=== PATIENT | female | born 1955 | race Hispanic/Latino ===

== ENCOUNTER → 2017-09-02 | Outpatient (CLI) | payer OTHER | END | disposition home or self-care (01) | LOC: RAH 09:47 | PROVIDERS: ATTEND Internal Medicine Cardiovascular Disease | DX: I73.9 Peripheral vascular disease, unspecified (principal); R55 Syncope and collapse | CPT/HCPCS: 70450 ==

== ENCOUNTER → 2017-09-14 | Outpatient (CLI) | payer OTHER | END | disposition home or self-care (01) | LOC: SHCH 11:56 | PROVIDERS: ATTEND Internal Medicine Cardiovascular Disease | DX: R51 Headache (principal); R55 Syncope and collapse; H53.8 Other visual disturbances | CPT/HCPCS: 93880 ==

== ENCOUNTER 2018-05-03 17:26 | Emergency (ER) | payer OTHER, MEDICARE ==
[2018-05-03] MEDS ORDERED: 0.9% SODIUM CHLORIDE 500 ML IV BAG IV ONE (17:51)
[2018-05-03 17:58] LABS: BASOPHILS % (AUTO) 0.1 % (0.0-5.0); EOSINOPHILS % (AUTO) 2.6 % (0.0-8.0); HEMATOCRIT 37.5 % (36-48); MEAN CORPUSCULAR HEMOGLOBIN 27.7 pg (27.0-33.0); MEAN CORPUSCULAR HGB CONC 33.2 g/dL (32.0-36.0); MEAN CORPUSCULAR VOLUME 83.3 fL (79-99); MONOCYTES % (AUTO) 2.9 % (3.0-13.0); NEUTROPHILS % (AUTO) 87.4 % (40.0-77.0); PLATELET COUNT (AUTO) 285 K/uL (130-400); RED CELL DISTRIBUTION WIDTH 14.8 % (11.0-15.5); WHITE BLOOD COUNT (AUTO) 11.5 K/uL (4.8-10.8)
[2018-05-03] MEDS ORDERED: 0.9% SODIUM CHLORIDE 1000 ML IV BAG IV ONE (18:04)
[2018-05-03 18:05] LABS: CREATININE 1.1 mg/dL (0.5-1.5); POTASSIUM 3.6 mmol/L (3.5-5.1)
[2018-05-03 18:09] LABS: ALBUMIN 3.8 g/dL (3.5-5.0); BILIRUBIN,TOTAL 0.6 mg/dL (0.2-1.0); TOTAL PROTEIN, SERUM 7.7 g/dL (6.0-8.3)
== END 2018-05-03 19:12 | disposition home or self-care (01) ==
LOC: EDH 17:26
DX: R11.2 Nausea with vomiting, unspecified (principal); I10 Essential (primary) hypertension; E11.9 Type 2 diabetes mellitus without complications; E78.5 Hyperlipidemia, unspecified
CPT/HCPCS: 36415; 80053; 85025; 96360; 96361; 99285; J7030; J7040

== ENCOUNTER → 2018-12-27 | Outpatient (CLI) | payer OTHER, MEDICARE | END | disposition home or self-care (01) | LOC: RAH 11:07 | PROVIDERS: ATTEND Family Medicine | DX: Z12.31 Encounter for screening mammogram for malignant neoplasm of breast (principal) | CPT/HCPCS: 77067 ==

== ENCOUNTER → 2019-02-05 | Outpatient (CLI) | payer OTHER, MEDICARE | END | disposition home or self-care (01) | LOC: SHCH 12:30 | PROVIDERS: ATTEND Internal Medicine Cardiovascular Disease | DX: I11.9 Hypertensive heart disease without heart failure (principal); I25.10 Atherosclerotic heart disease of native coronary artery without angina pectoris | CPT/HCPCS: 93306 ==

== ENCOUNTER 2019-06-11 16:27 | Emergency (ER) | payer OTHER, MEDICARE ==
[2019-06-11 18:09] LABS: BASOPHILS % (AUTO) 0.4 % (0.0-5.0); EOSINOPHILS % (AUTO) 3.8 % (0.0-8.0); HEMATOCRIT 35.8 % (36-48); LYMPHOCYTES % (AUTO) 21.8 % (21.0-51.0); MEAN CORPUSCULAR HEMOGLOBIN 28.8 pg (27.0-33.0); MEAN CORPUSCULAR HGB CONC 34.3 g/dL (32.0-36.0); MEAN CORPUSCULAR VOLUME 83.8 fL (79-99); MONOCYTES % (AUTO) 9.7 % (3.0-13.0); NEUTROPHILS % (AUTO) 64.3 % (40.0-77.0); NUCLEATED RED BLOOD CELLS 0.1 % (0.0-0.19); PLATELET COUNT (AUTO) 280 K/uL (130-400); RED BLOOD CELL COUNT(AUTO) 4.28 MIL/uL (4.00-5.50); RED CELL DISTRIBUTION WIDTH 13.8 % (11.0-15.5); WHITE BLOOD COUNT (AUTO) 8.1 K/uL (4.8-10.8)
[2019-06-11 18:59] LABS: B-TYPE NATRIURETIC PEPTIDE 10 pg/mL (0-100)
== END 2019-06-11 19:45 | disposition home or self-care (01) ==
LOC: EDH 16:27
DX: I10 Essential (primary) hypertension (principal); E11.9 Type 2 diabetes mellitus without complications; E78.5 Hyperlipidemia, unspecified; Z88.8 Allergy status to other drugs, medicaments and biological substances; Z98.890 Other specified postprocedural states
CPT/HCPCS: 36415; 83880; 84484; 85025; 93005

== ENCOUNTER 2019-07-04 15:22 | Observation (INO) | payer OTHER, MEDICARE ==
[~2019-07-04] VITALS: Ht 167.6 cm; Wt 72.4 kg
[2019-07-04] MEDS ORDERED: ONDANSETRON HCL 4 MG/2 ML VIAL ONE (15:39)
[2019-07-04 16:03] LABS: BASOPHILS % (AUTO) 0.4 % (0.0-5.0); HEMATOCRIT 39.4 % (36-48); LYMPHOCYTES % (AUTO) 24.2 % (21.0-51.0); MEAN CORPUSCULAR HEMOGLOBIN 28.5 pg (27.0-33.0); MEAN CORPUSCULAR HGB CONC 33.9 g/dL (32.0-36.0); MEAN CORPUSCULAR VOLUME 84.1 fL (79-99); MONOCYTES % (AUTO) 9.6 % (3.0-13.0); NEUTROPHILS % (AUTO) 61.8 % (40.0-77.0); NUCLEATED RED BLOOD CELLS 0.1 % (0.0-0.19); PLATELET COUNT (AUTO) 327 K/uL (130-400); RED BLOOD CELL COUNT(AUTO) 4.68 MIL/uL (4.00-5.50); RED CELL DISTRIBUTION WIDTH 13.7 % (11.0-15.5); WHITE BLOOD COUNT (AUTO) 8.9 K/uL (4.8-10.8)
[2019-07-04 16:16] LABS: CREATININE 1.1 mg/dL (0.5-1.5); POTASSIUM 3.5 mmol/L (3.5-5.1)
[2019-07-04 16:20] LABS: BILIRUBIN,TOTAL 0.6 mg/dL (0.2-1.0); TOTAL PROTEIN, SERUM 8.7 g/dL (6.0-8.3)
[2019-07-04 16:24] LABS: INR 0.89 (0.85-1.15); PARTIAL THROMBOPLASTIN TIME 25.4 SEC (26.3-35.5); PROTHROMBIN TIME 9.4 SEC (9.6-11.6)
[2019-07-04] MEDS ORDERED: HYOSCYAMINE SULFATE 0.125 MG TAB.SUBL SL ONE (16:24)
[2019-07-04 16:58] LABS: APPEARANCE,URINE Clear (CLEAR); BILIRUBIN,URINE Negative (NEGATIVE); COLOR,URINE Yellow (YELLOW); GLUCOSE, URINE (UA) 500 mg/dL (NEGATIVE); KETONES,URINE Negative (NEGATIVE); LEUKOCYTE ESTERASE ,URINE Negative (NEGATIVE); NITRATE,URINE Negative (NEGATIVE); OCCULT BLOOD,URINE Negative (NEGATIVE); PH,URINE 7.5 (5.0-8.0); PROTEIN,URINE Trace mg/dL (NEGATIVE)
[2019-07-04 17:23] LABS: BACTERIA,URINE Few /HPF (None Seen); MUCUS,URINE Few LPF (None Seen)
[2019-07-04] MEDS ORDERED: SIMETHICONE 80 MG TAB.CHEW ONE (18:01)
[2019-07-04] MEDS ORDERED: KETOROLAC TROMETHAMINE 15MG/ML ONE (18:01)
[2019-07-04] MEDS ORDERED: SUCRALFATE 1 GM TABLET ONE (18:02)
[2019-07-04] MEDS ORDERED: ZOSYN 3.375GM+NS 50ML 50 ML IV ONE (18:49)
[2019-07-04] MEDS ORDERED: MORPHINE SULFATE 2 MG/ML 1ML SYG ONE (20:33)
[2019-07-04] MEDS ORDERED: MORPHINE SULFATE 2 MG/ML 1ML SYG IVP PRN (21:00)
[2019-07-04] MEDS ORDERED: GLUCAGON 1MG KIT 1 MG ML IM PRN (21:00)
[2019-07-04] MEDS ORDERED: DEXTROSE 50%-WATER 50 ML DISP.SYRIN IV PRN (21:00)
[2019-07-04] MEDS ORDERED: POTASSIUM CHLORIDE 20 MEQ ERTAB PO PRN (21:00)
[2019-07-04] MEDS ORDERED: LIDOCAINE HCL-MPF 1% 2ML VIAL IV PRN ×2 (21:00)
[2019-07-04] MEDS ORDERED: HYDRALAZINE HCL 20 MG/ML VIAL IV PRN (21:00)
[2019-07-04] MEDS ORDERED: POTASSIUM CHLORIDE 20MEQ/100ML 100 ML IV PRN ×2 (21:00)
[2019-07-04 21:14] VITALS: BP 140/74
[2019-07-04] MEDS: SODIUM CHLORIDE 0.9% 1000ML 1,000 ML IV SCH (21:42)
[2019-07-04] MEDS: POTASSIUM CHLORIDE 10% ELIXIR 20 MEQ/15 ML UDCUP PO PRN ×2 (21:43→23:31)
[2019-07-04] MEDS ORDERED: CLONIDINE HCL 0.1 MG TABLET PO PRN (23:00)
[2019-07-04] MEDS ORDERED: NAPROXEN 250 MG TAB PO PRN (23:00)
[2019-07-04 23:05] VITALS: BP 162/89
[2019-07-04] MEDS ORDERED: DEXL60CA3 PO (23:24)
[2019-07-04] MEDS ORDERED: METO50TA18 PO (23:24)
[2019-07-04] MEDS ORDERED: METF-446 PO (23:24)
[2019-07-04] MEDS ORDERED: DILT240C46 PO (23:24)
[2019-07-04] MEDS ORDERED: INSU3INS10 SQ (23:24)
[2019-07-04] MEDS ORDERED: NAPR500T6 PO (23:24)
[2019-07-04] MEDS ORDERED: VALS1TAB81 PO (23:24)
[2019-07-04] MEDS ORDERED: CLON0.1T PO (23:24)
[2019-07-04] MEDS ORDERED: AEC81 PO (23:24)
[2019-07-04] MEDS ORDERED: ATOR40TA69 PO (23:24)
[2019-07-05] MEDS ORDERED: ZOSYN 3.375GM+NS 50ML 50 ML IV ONE (02:57)
[2019-07-05] MEDS ORDERED: ONDANSETRON HCL 4 MG/2 ML VIAL IVP PRN ×2 (03:00)
[2019-07-05] MEDS ORDERED: KETOROLAC TROMETHAMINE 15MG/ML IV PRN (03:00)
[2019-07-05] MEDS ORDERED: ACETAMINOPHEN 325 MG TAB PO PRN ×2 (03:00)
[2019-07-05 03:29] VITALS: BP 158/79
[2019-07-05 04:23] LABS: HEMATOCRIT 34.4 % (36-48); MEAN CORPUSCULAR HEMOGLOBIN 27.8 pg (27.0-33.0); MEAN CORPUSCULAR HGB CONC 33.5 g/dL (32.0-36.0); MEAN CORPUSCULAR VOLUME 82.9 fL (79-99); PLATELET COUNT (AUTO) 309 K/uL (130-400); RED BLOOD CELL COUNT(AUTO) 4.15 MIL/uL (4.00-5.50); RED CELL DISTRIBUTION WIDTH 13.8 % (11.0-15.5); WHITE BLOOD COUNT (AUTO) 7.4 K/uL (4.8-10.8)
[2019-07-05 04:45] LABS: ALBUMIN 3.2 g/dL (3.5-5.0); BILIRUBIN,TOTAL 0.6 mg/dL (0.2-1.0); TOTAL PROTEIN, SERUM 7.1 g/dL (6.0-8.3)
[2019-07-05] MEDS: ZOSYN 3.375GM+NS 50ML 50 ML IV SCH ×2 (05:00→15:36)
[2019-07-05] MEDS: SODIUM CHLORIDE 0.9% 1000ML 1,000 ML IV SCH ×2 (05:10→15:36)
[2019-07-05] MEDS: INSULIN HUMULIN R 100 UNIT/ML 3ML SQ SCH ×5 (06:00→22:45)
--- NOTE | 2019-07-05 07:40 | NUR ---
NOTE AAOX3. DNEIES ABDOMINAL PAIN OR DISCOMFORT AT THIS TIME BUT SHE DID COME IN WITH THESE COMPLAINS. STARTED YESTERDAY. HAD CT AND ULTRASOUND ABDOMEN DONE AND GI CONSULT ORDERED. WILL PAGE LATER. WILL KEEP NPO FOR NOW.
--- NOTE | 2019-07-05 07:57 | NUR ---
PATIENT UPDATE ADMITTED FOR INTRACTABLE ABDOMINAL PAIN. NPO EXCEPT MEDS LAST NIGHT, HOME MEDS RESTARTED, BP MEDS TAKEN BY PT. NS AT 100 CC/HR, PENDING GI CONSULT THIS AM, PT KEPT STRICT NPO STATUS AFTER MN, FOR POSSIBLE GI PROCEDURE THIS AM. PT SHOWERED BEFORE MN, HOME MEDS RESTARTED, NS INFUSED AT 75 CC/HR. NO COMPLAINTS OF ANY ABDOMINAL PAIN, NO NAUSEA AND VOMITING. SLEPT FAIRLY OVERNIGHT.
[2019-07-05 07:59] VITALS: BP 153/83
[2019-07-05] MEDS: METFORMIN HCL 500 MG TABLET PO SCH ×2 (08:00→15:36)
[2019-07-05] MEDS: INSULIN GLARGINE 100 UNITS/ML 10 ML VIAL SQ SCH (08:33)
[2019-07-05] MEDS: ASPIRIN 81 MG EC TAB PO SCH (09:00)
[2019-07-05] MEDS: VALSARTAN HCTZ PO SCH (09:00)
[2019-07-05] MEDS: DILTIAZEM HCL 120 MG CAP.SR.24H PO SCH (09:00)
[2019-07-05] MEDS: METOPROLOL TARTRATE 50 MG TAB PO SCH ×2 (09:00→22:10)
[2019-07-05] MEDS: PANTOPRAZOLE SODIUM 40 MG TABLET.DR PO SCH (09:00)
--- NOTE | 2019-07-05 10:59 | NUR ---
NOTE SPOKE TO DR MOONEY OFFICE AND INFORMED THEM ABOUT CONSULT. WE HAD PAGED DR MORENO BUT SHE DID NOT TAKE THE CALL EARLIER.
[2019-07-05 11:29] VITALS: BP 142/76
--- NOTE | 2019-07-05 12:30 | NUR ---
INITIAL MET W PT. AAOX3, LIVES W SPOUSE., WHO IS AT BEDSIDE, AND WILL PROVIDE TRANSPORT INDP OF ADLS, USES [employer], HAS PROVIDER 25 HRS/WK, NO STAIRS, N HOME SAFE AND ACCESSIBLE, DCP IS HOME. WAITING ON HIDA SCAN, THEN TO TOLERATE DIET Addendum: 07/06/19 at 1856 by BERTHA PAPPAS RN CM Amended: Links added.
--- NOTE | 2019-07-05 15:00 | NUR ---
NOTE WENT DOWN TO HAVE HIDA SCAN DONE. PATIENT HAD BEEN COMPLAINING ABOUT BEING HUNGRY.
[2019-07-05 16:08] VITALS: BP 146/80
--- NOTE | 2019-07-05 16:50 | NUR ---
NOTE INFORMED DR MOONEY THAT HIDA SCAN LIGHT US GB AND SMALL INTESTINE NO PROBLEM. ASKED HIM IF HE WOULD LIKE EF TO BE DONE AT THIS TIME BEFORE PATIENT IS BROUGHT UP. HE SAID YES. I INFORMED ALAINA WITH NUCLEAR MEDICINE.
[2019-07-05 19:54] VITALS: BP 162/89
[2019-07-05] MEDS ORDERED: ATORVASTATIN CALCIUM 40 MG TABLET PO SCH (21:00)
[2019-07-05 23:46] VITALS: BP 149/89
[2019-07-06] MEDS: ZOSYN 3.375GM+NS 50ML 50 ML IV SCH ×2 (00:05→05:00)
[2019-07-06 04:00] VITALS: BP 139/81
[2019-07-06] MEDS: INSULIN HUMULIN R 100 UNIT/ML 3ML SQ SCH ×2 (05:58→12:23)
--- NOTE | 2019-07-06 06:00 | NUR ---
PATIENT UPDATE Slept well overnight, no complaints of pain. Ambulating more, tolerating a heart healthy diet, no nausea nor vomiting. Vital signs stable. Will check pt's tolerance to a low fat diet today and stated that she might be discharged today.
[2019-07-06 08:00] VITALS: BP 157/91
[2019-07-06] MEDS: METFORMIN HCL 500 MG TABLET PO SCH (08:54)
[2019-07-06] MEDS: METOPROLOL TARTRATE 50 MG TAB PO SCH (08:55)
[2019-07-06] MEDS: ASPIRIN 81 MG EC TAB PO SCH (08:55)
[2019-07-06] MEDS: PANTOPRAZOLE SODIUM 40 MG TABLET.DR PO SCH (08:55)
[2019-07-06] MEDS: DILTIAZEM HCL 120 MG CAP.SR.24H PO SCH (08:55)
[2019-07-06] MEDS: VALSARTAN HCTZ PO SCH (09:00)
[2019-07-06] MEDS: INSULIN GLARGINE 100 UNITS/ML 10 ML VIAL SQ SCH (09:01)
--- NOTE | 2019-07-06 10:55 | NUR ---
DR. LAM ZUÑIGA
[2019-07-06 11:00] VITALS: BP 161/94
--- NOTE | 2019-07-06 13:01 | NUR ---
JULIUS FROM GI OFFIC [facility] AWARE STATES WILL CONVEY HIDA SCAN RESULTS TO DR. GONZALEZ
--- NOTE | 2019-07-06 17:55 | NUR ---
PT D/C HOME USING [facility] TECHNIQUE RE: NEW MEDS, HOME MEDS, S/S TO WATCH FOR AND WHEN TO CALL MD OR 911. FOLLOW UP APPT WITH DR. MOONEY ON July @ 3:15P.M. OFFICE NUMBER: FOLLOW WITH PRIMARY DOCTOR ON TUESDAY IN AM. CALL TO SET UP AN APPOINTMENT. OFFICES WERE CLOSED AT TIME OF DISCHARGE. IF SEVERE ABDOMINAL PAIN REOCCURS CALL YOUR PRIMARY DOCTOR OF VISIT YOUR NEAREST EMERGENCY ROOM. IV OUT INTACT NO BLEEDING, AAOX3, NO DISTRESS NOTED DENIES ANY NEEDS.
== END 2019-07-06 17:39 | disposition home or self-care (01) ==
LOC: EDH 15:22 → EDHIP 18:20 → 4CH 20:09
PROVIDERS: ADMIT Internal Medicine; ATTEND Internal Medicine
DX: R10.13 Epigastric pain (principal); E11.9 Type 2 diabetes mellitus without complications; E78.5 Hyperlipidemia, unspecified; I10 Essential (primary) hypertension; I25.10 Atherosclerotic heart disease of native coronary artery without angina pectoris; Z87.11 Personal history of peptic ulcer disease; Z87.891 Personal history of nicotine dependence; Z96.651 Presence of right artificial knee joint; Z79.4 Long term (current) use of insulin; Z79.82 Long term (current) use of aspirin; Z79.899 Other long term (current) drug therapy; Z88.8 Allergy status to other drugs, medicaments and biological substances
CPT/HCPCS: 36415 ×2; 71045; 74176; 76705; 78227; 80053 ×2; 81001; 82150 ×2; 82550; 82948 ×7; 83690 ×2; 84484 ×2; 85025; 85027; 85610; 85730; 93005 ×2; 96365; 96366 ×2; 96372; 99284; A9537; G0378 ×48; J1885; J2405; J2543 ×4; J7030 ×2

== ENCOUNTER → 2019-12-27 | Outpatient (CLI) | payer OTHER, MEDICARE ==
[~2019-12-27] MED LIST: AEC81 PO; ATOR40TA69 PO; CLON0.1T PO; DEXL60CA3 PO; DILT240C46 PO; INSU3INS10 SQ; LEVO500T2 PO; METF-446 PO; METO50TA18 PO; METR500T PO; SUCR1TAB2 PO; VALS1TAB81 PO
== END | disposition home or self-care (01) ==
LOC: RAH 10:45
PROVIDERS: ATTEND Family Medicine
DX: Z12.31 Encounter for screening mammogram for malignant neoplasm of breast (principal)
CPT/HCPCS: 77067

== ENCOUNTER 2020-01-04 13:55 | Emergency (ER) | payer OTHER, MEDICARE ==
[2020-01-04 15:05] LABS: BASOPHILS % (AUTO) 0.4 % (0.0-5.0); EOSINOPHILS % (AUTO) 2.6 % (0.0-8.0); HEMATOCRIT 36.7 % (36-48); MEAN CORPUSCULAR HEMOGLOBIN 26.2 pg (27.0-33.0); MEAN CORPUSCULAR HGB CONC 32.2 g/dL (32.0-36.0); MEAN CORPUSCULAR VOLUME 81.4 fL (79-99); MONOCYTES % (AUTO) 8.2 % (3.0-13.0); NEUTROPHILS % (AUTO) 76.3 % (40.0-77.0); PLATELET COUNT (AUTO) 322 K/uL (130-400); RED BLOOD CELL COUNT(AUTO) 4.51 MIL/uL (4.00-5.50); RED CELL DISTRIBUTION WIDTH 13.8 % (11.0-15.5); WHITE BLOOD COUNT (AUTO) 10.1 K/uL (4.8-10.8)
[2020-01-04 15:16] LABS: CREATININE 1.1 mg/dL (0.5-1.5); POTASSIUM 3.9 mmol/L (3.5-5.1)
[2020-01-04 15:17] LABS: INR 0.88 (0.85-1.15); PARTIAL THROMBOPLASTIN TIME 25.2 SEC (26.3-35.5); PROTHROMBIN TIME 9.6 SEC (9.6-11.6)
[2020-01-04 15:20] LABS: ALBUMIN 3.9 g/dL (3.5-5.0); BILIRUBIN,TOTAL 0.5 mg/dL (0.2-1.0); TOTAL PROTEIN, SERUM 8.2 g/dL (6.0-8.3)
[2020-01-04] MEDS ORDERED: MORPHINE SULFATE 2 MG/ML 1ML SYG ONE (16:14)
== END 2020-01-04 17:44 | disposition home or self-care (01) ==
LOC: EDH 13:55
DX: S52.021A Displaced fracture of olecranon process without intraarticular extension of right ulna, initial encounter for closed fracture (principal); M25.522 Pain in left elbow; S50.02XA Contusion of left elbow, initial encounter; M25.561 Pain in right knee; I10 Essential (primary) hypertension; E78.5 Hyperlipidemia, unspecified; E11.9 Type 2 diabetes mellitus without complications; I25.10 Atherosclerotic heart disease of native coronary artery without angina pectoris; W18.39XA Other fall on same level, initial encounter; Y93.01 Activity, walking, marching and hiking; Y92.89 Other specified places as the place of occurrence of the external cause; Y99.8 Other external cause status
CPT/HCPCS: 29105; 36415; 70450; 71045; 73080; 73562; 80053; 82550; 84484; 85025; 85610; 85730; 93005; 96372; 96374

== ENCOUNTER → 2021-01-20 | Outpatient (CLI) | payer OTHER, MEDICARE | END | disposition home or self-care (01) | LOC: RAH 10:14 | PROVIDERS: ATTEND Family Medicine | DX: Z12.31 Encounter for screening mammogram for malignant neoplasm of breast (principal) | CPT/HCPCS: 77067 ==

== ENCOUNTER 2021-04-29 19:07 | Emergency (ER) | payer OTHER, MEDICARE ==
[~2021-04-29] VITALS: Ht 167.6 cm; Wt 69.4 kg
[2021-04-29] MEDS ORDERED: ASPIRIN 325MG TAB PO ONE (19:30)
[2021-04-29 19:40] LABS: APPEARANCE,URINE Clear (CLEAR); BILIRUBIN,URINE Negative (NEGATIVE); COLOR,URINE Yellow (YELLOW); GLUCOSE, URINE (UA) 250 mg/dL (NEGATIVE); KETONES,URINE Negative (NEGATIVE); LEUKOCYTE ESTERASE ,URINE Negative (NEGATIVE); NITRATE,URINE Negative (NEGATIVE); OCCULT BLOOD,URINE Negative (NEGATIVE); PH,URINE 5.5 (5.0-8.0); PROTEIN,URINE Negative (NEGATIVE)
[2021-04-29 19:47] LABS: BASOPHILS % (AUTO) 0.5 % (0.0-5.0); EOSINOPHILS % (AUTO) 5.4 % (0.0-8.0); HEMATOCRIT 32.6 % (36-48); LYMPHOCYTES % (AUTO) 24.1 % (21.0-51.0); MEAN CORPUSCULAR HEMOGLOBIN 25.4 pg (27.0-33.0); MEAN CORPUSCULAR HGB CONC 32.8 g/dL (32.0-36.0); MEAN CORPUSCULAR VOLUME 77.3 fL (79-99); MONOCYTES % (AUTO) 11.5 % (3.0-13.0); NEUTROPHILS % (AUTO) 58.1 % (40.0-77.0); PLATELET COUNT (AUTO) 345 K/uL (130-400); RED BLOOD CELL COUNT(AUTO) 4.22 MIL/uL (4.00-5.50); RED CELL DISTRIBUTION WIDTH 14.4 % (11.0-15.5); WHITE BLOOD COUNT (AUTO) 8.5 K/uL (4.8-10.8)
[2021-04-29 19:57] LABS: CREATININE 1.1 mg/dL (0.5-1.5); POTASSIUM 3.8 mmol/L (3.5-5.1)
[2021-04-29 20:00] LABS: BACTERIA,URINE None Seen /HPF (None Seen); MUCUS,URINE Few LPF (None Seen); RBC,URINE 0-1 /HPF (0-1); SQUAMOUS EPITHELIAL CELL,UR 0-2 /HPF (0-2); WBC,URINE 0-1 /HPF (0-1)
[2021-04-29 20:07] LABS: ALBUMIN 3.8 g/dL (3.5-5.0); BILIRUBIN,TOTAL 0.4 mg/dL (0.2-1.0); TOTAL PROTEIN, SERUM 7.9 g/dL (6.0-8.3)
[2021-04-29] MEDS ORDERED: SOLU-MEDROL 125MG VIAL IVP ONE (20:30)
[2021-04-30] MEDS ORDERED: METH4TAB3 PO (00:48)
[2021-04-30 01:28] VITALS: BP 142/83
== END 2021-04-30 01:39 | disposition home or self-care (01) ==
LOC: EDH 19:07
DX: M94.0 Chondrocostal junction syndrome [Tietze] (principal); J44.9 Chronic obstructive pulmonary disease, unspecified; K21.9 Gastro-esophageal reflux disease without esophagitis; I10 Essential (primary) hypertension; E78.00 Pure hypercholesterolemia, unspecified; E11.9 Type 2 diabetes mellitus without complications; Z79.52 Long term (current) use of systemic steroids; Z79.82 Long term (current) use of aspirin; Z79.899 Other long term (current) drug therapy; Z88.8 Allergy status to other drugs, medicaments and biological substances; Z79.4 Long term (current) use of insulin
CPT/HCPCS: 36415; 71045; 80053; 81001; 82550; 83874; 84484; 85025; 93005; 96374; 99285; J2930

== ENCOUNTER → 2021-05-19 | Outpatient (CLI) | payer OTHER, MEDICARE ==
[~2021-05-19] VITALS: Ht 167.6 cm; Wt 71.7 kg
[~2021-05-19] MED LIST changes: +METH4TAB3 PO; +REGADENOSON 0.4 MG/5 ML PF SYG IVP SCH
== END | disposition home or self-care (01) ==
LOC: SHCH 08:12
PROVIDERS: ATTEND Internal Medicine Cardiovascular Disease
DX: I25.10 Atherosclerotic heart disease of native coronary artery without angina pectoris (principal)
CPT/HCPCS: 78452; 93017; 96374; A9500 ×2; J2785

== ENCOUNTER 2021-12-23 20:55 | Observation (INO) | payer OTHER, MEDICARE ==
[~2021-12-23] VITALS: Ht 165.1 cm; Wt 72.9 kg
[~2021-12-23 20:55] MED LIST changes: -REGADENOSON 0.4 MG/5 ML PF SYG IVP SCH
[2021-12-23 22:38] LABS: APPEARANCE,URINE Clear (CLEAR); BILIRUBIN,URINE Negative (NEGATIVE); COLOR,URINE Yellow (YELLOW); GLUCOSE, URINE (UA) TRACE mg/dL (NEGATIVE); KETONES,URINE Negative (NEGATIVE); LEUKOCYTE ESTERASE ,URINE Negative (NEGATIVE); NITRATE,URINE Negative (NEGATIVE); OCCULT BLOOD,URINE Small (NEGATIVE); PROTEIN,URINE Negative (NEGATIVE); UROBILINOGEN,URINE 0.2 mg/dL (0.2-1.0)
[2021-12-23 22:51] LABS: BACTERIA,URINE Few /HPF (None Seen); RBC,URINE 0-1 /HPF (0-1)
[2021-12-23 22:51] LABS: BASOPHILS % (AUTO) 0.4 % (0.0-5.0); HEMATOCRIT 32.1 % (36-48); LYMPHOCYTES % (AUTO) 20.4 % (21.0-51.0); MEAN CORPUSCULAR HEMOGLOBIN 23.7 pg (27.0-33.0); MEAN CORPUSCULAR HGB CONC 31.8 g/dL (32.0-36.0); MEAN CORPUSCULAR VOLUME 74.5 fL (79-99); MONOCYTES % (AUTO) 10.6 % (3.0-13.0); NEUTROPHILS % (AUTO) 63.1 % (40.0-77.0); PLATELET COUNT (AUTO) 356 K/uL (130-400); RED BLOOD CELL COUNT(AUTO) 4.31 MIL/uL (4.00-5.50); RED CELL DISTRIBUTION WIDTH 14.3 % (11.0-15.5); WHITE BLOOD COUNT (AUTO) 8.4 K/uL (4.8-10.8)
[2021-12-23 23:01] LABS: CREATININE 1.1 mg/dL (0.5-1.5); POTASSIUM 3.6 mmol/L (3.5-5.1)
[2021-12-23 23:05] LABS: ALBUMIN 3.8 g/dL (3.5-5.0); BILIRUBIN,TOTAL 0.4 mg/dL (0.2-1.0); TOTAL PROTEIN, SERUM 7.7 g/dL (6.0-8.3)
[2021-12-24] MEDS ORDERED: ACETAMINOPHEN 650 MG SUPPOSITORY RC PRN (03:30)
[2021-12-24] MEDS ORDERED: ALBUTEROL 0.083% 2.5 MG/3 ML INH IH PRN (03:30)
[2021-12-24] MEDS ORDERED: ACETAMINOPHEN 325 MG TAB PO PRN (03:30)
[2021-12-24] MEDS ORDERED: ONDANSETRON 4MG INJ IVP PRN (03:30)
[2021-12-24] MEDS ORDERED: HYDRALAZINE 20MG/ML VIAL IV PRN (03:30)
[2021-12-24 04:45] VITALS: BP 158/83
[2021-12-24 05:01] LABS: HEMATOCRIT 30.7 % (36-48)
[2021-12-24] MEDS: 0.9%NACL 1000ML 1,000 ML IV SCH ×2 (05:22→18:21)
[2021-12-24 08:00] VITALS: BP 139/70
[2021-12-24 12:00] VITALS: BP 156/80
[2021-12-24] MEDS ORDERED: CLONIDINE HCL 0.1 MG TABLET PO PRN (13:30)
[2021-12-24] MEDS ORDERED: PEG 3350/NA SULF,BICARB,CL/KCL 4000 ML SOLN PO SCH (13:30)
[2021-12-24 14:34] LABS: HEMATOCRIT 31.1 % (36-48)
[2021-12-24 14:44] LABS: INR 0.93 (0.85-1.15); PROTHROMBIN TIME 9.9 SEC (9.6-11.6)
[2021-12-24 14:46] LABS: PARTIAL THROMBOPLASTIN TIME 25.6 SEC (26.3-35.5)
[2021-12-24 16:00] VITALS: BP 141/75
[2021-12-24] MEDS ORDERED: METFORMIN HCL 500 MG TABLET PO SCH (17:00)
[2021-12-24 20:04] VITALS: BP 143/89
[2021-12-24] MEDS ORDERED: ATORVASTATIN 40 MG TABLET PO SCH (21:00)
[2021-12-24 21:10] LABS: HEMATOCRIT 30.6 % (36-48)
[2021-12-24] MEDS: METOPROLOL TARTRATE 50 MG TAB PO SCH (22:11)
[2021-12-24] MEDS: PANTOPRAZOLE 40 MG/VIAL IVP SCH (22:11)
[2021-12-24 23:37] VITALS: BP 137/74
[2021-12-25] VITALS (19 sets, daily range): BP systolic 115–178; BP diastolic 60–100
[2021-12-25 04:51] LABS: HEMATOCRIT 31.7 % (36-48); MEAN CORPUSCULAR HEMOGLOBIN 23.6 pg (27.0-33.0); MEAN CORPUSCULAR HGB CONC 31.2 g/dL (32.0-36.0); MEAN CORPUSCULAR VOLUME 75.5 fL (79-99); RED BLOOD CELL COUNT(AUTO) 4.2 MIL/uL (4.00-5.50); RED CELL DISTRIBUTION WIDTH 14.6 % (11.0-15.5); WHITE BLOOD COUNT (AUTO) 6.2 K/uL (4.8-10.8)
[2021-12-25 05:13] LABS: ALBUMIN 3.3 g/dL (3.5-5.0); BILIRUBIN,TOTAL 0.9 mg/dL (0.2-1.0); CREATININE 0.8 mg/dL (0.5-1.5); MAGNESIUM 1.4 mg/dL (1.80-2.40); PHOSPHORUS 3.3 mg/dL (2.5-4.9); POTASSIUM 3.8 mmol/L (3.5-5.1); TOTAL PROTEIN, SERUM 6.7 g/dL (6.0-8.3)
[2021-12-25] MEDS: INSULIN HUMULIN R 100 UNIT/ML 3ML SQ SCH ×3 (06:56→16:30)
[2021-12-25] MEDS: METOPROLOL TARTRATE 50 MG TAB PO SCH (07:30)
[2021-12-25] MEDS ORDERED: PROPOFOL 10 MG/ML 20ML VIAL IV ONE (07:53)
[2021-12-25] MEDS ORDERED: LOSARTAN/HYDROCHLOROTHIAZIDE 50-12.5MG TABLET PO SCH (09:00)
[2021-12-25] MEDS ORDERED: DILTIAZEM 120MG SR CAP PO SCH (09:00)
[2021-12-25] MEDS ORDERED: DEXILANT 60 MG PO SCH (09:00)
[2021-12-25] MEDS ORDERED: MAGNESIUM 2GM PREMIX 50ML 50 ML IV PRN (09:00)
[2021-12-25] MEDS ORDERED: SOLIQUA SQ SCH (09:00)
[2021-12-25] MEDS: 0.9%NACL 1000ML 1,000 ML IV SCH (09:21)
[2021-12-25] MEDS: PANTOPRAZOLE 40 MG/VIAL IVP SCH (09:21)
== END 2021-12-25 17:50 | disposition home or self-care (01) ==
LOC: EDH 20:55 → EDHIP 12-24 03:06 → 3AH 12-24 03:56
PROVIDERS: ADMIT Internal Medicine Critical Care Medicine; ATTEND Internal Medicine Critical Care Medicine
DX: K92.2 Gastrointestinal hemorrhage, unspecified (principal); D62 Acute posthemorrhagic anemia; E87.1 Hypo-osmolality and hyponatremia; E11.9 Type 2 diabetes mellitus without complications; I10 Essential (primary) hypertension; E78.5 Hyperlipidemia, unspecified; M19.90 Unspecified osteoarthritis, unspecified site; I25.10 Atherosclerotic heart disease of native coronary artery without angina pectoris; K21.9 Gastro-esophageal reflux disease without esophagitis; K64.9 Unspecified hemorrhoids; R11.2 Nausea with vomiting, unspecified; E78.00 Pure hypercholesterolemia, unspecified; Z79.4 Long term (current) use of insulin; Z79.82 Long term (current) use of aspirin; Z87.19 Personal history of other diseases of the digestive system; Z90.710 Acquired absence of both cervix and uterus; Z96.659 Presence of unspecified artificial knee joint; Z79.899 Other long term (current) drug therapy; Z98.890 Other specified postprocedural states
CPT/HCPCS: 36415 ×3; 45378; 74176; 76700; 80053 ×2; 81001; 82948; 83735; 84100; 85014 ×4; 85018 ×5; 85025; 85027; 85610; 85730; 86850; 86900; 86901; 93005; 94640; 94664; 96361 ×2; 96365; 96366; 96372; 96375; 96376; 99285; A4215; A4222; A4223; A4606; A4620; C9113 ×2; G0378 ×37; J1815; J2704; J3475; J7030

== ENCOUNTER → 2022-01-22 | Outpatient (CLI) | payer OTHER, MEDICARE ==
[~2022-01-22] MED LIST changes: -AEC81 PO; -LEVO500T2 PO; -METH4TAB3 PO; -METR500T PO; -SUCR1TAB2 PO
== END | disposition home or self-care (01) ==
LOC: RAH 07:30
PROVIDERS: ATTEND Family Medicine
DX: Z12.31 Encounter for screening mammogram for malignant neoplasm of breast (principal); R92.1 Mammographic calcification found on diagnostic imaging of breast
CPT/HCPCS: 77067

== ENCOUNTER 2022-04-18 23:02 | Emergency (ER) | payer OTHER, MEDICARE ==
[~2022-04-18] VITALS: Ht 167.6 cm; Wt 73.5 kg
[2022-04-18 23:35] LABS: BASOPHILS % (AUTO) 0.3 % (0.0-5.0); EOSINOPHILS % (AUTO) 4.5 % (0.0-8.0); HEMATOCRIT 35.1 % (36-48); LYMPHOCYTES % (AUTO) 30.1 % (21.0-51.0); MEAN CORPUSCULAR HEMOGLOBIN 24.7 pg (27.0-33.0); MEAN CORPUSCULAR HGB CONC 32.5 g/dL (32.0-36.0); MEAN CORPUSCULAR VOLUME 76.1 fL (79-99); MONOCYTES % (AUTO) 10.6 % (3.0-13.0); NEUTROPHILS % (AUTO) 54.1 % (40.0-77.0); PLATELET COUNT (AUTO) 359 K/uL (130-400); RED BLOOD CELL COUNT(AUTO) 4.61 MIL/uL (4.00-5.50); WHITE BLOOD COUNT (AUTO) 9.8 K/uL (4.8-10.8)
[2022-04-18 23:42] LABS: APPEARANCE,URINE CLEAR (CLEAR); BILIRUBIN,URINE NEGATIVE (NEGATIVE); COLOR,URINE COLORLESS (YELLOW); GLUCOSE, URINE (UA) NEGATIVE (NEGATIVE); KETONES,URINE NEGATIVE (NEGATIVE); LEUKOCYTE ESTERASE ,URINE NEGATIVE Leu/uL (NEGATIVE); NITRATE,URINE NEGATIVE (NEGATIVE); OCCULT BLOOD,URINE SMALL (NEGATIVE); PROTEIN,URINE NEGATIVE (NEGATIVE); UROBILINOGEN,URINE 0.2 mg/dL (0.2-1.0)
[2022-04-18 23:45] LABS: SQUAMOUS EPITHELIAL CELL,UR RARE /HPF (0-2); WBC,URINE 0-1 /HPF (0-1)
[2022-04-18 23:49] VITALS: BP 148/73
[2022-04-18 23:52] LABS: CREATININE 1.2 mg/dL (0.5-1.5); POTASSIUM 3.4 mmol/L (3.5-5.1)
[2022-04-18 23:56] LABS: ALBUMIN 3.8 g/dL (3.5-5.0); TOTAL PROTEIN, SERUM 7.9 g/dL (6.0-8.3)
[2022-04-19 00:15] LABS: INR 0.93 (0.85-1.15); PROTHROMBIN TIME 9.3 SEC (9.6-11.6)
[2022-04-19 00:17] LABS: PARTIAL THROMBOPLASTIN TIME 24.8 SEC (26.3-35.5)
[2022-04-19] MEDS ORDERED: IOHEXOL 350 MG/ML 100ML INFUS..BTL IV ONE (00:17)
[2022-04-19] MEDS ORDERED: HYDR25SU38 RC (00:50)
== END 2022-04-19 02:04 | disposition home or self-care (01) ==
LOC: EDH 23:02
DX: K64.8 Other hemorrhoids (principal); E11.9 Type 2 diabetes mellitus without complications; E78.00 Pure hypercholesterolemia, unspecified; I10 Essential (primary) hypertension; K21.9 Gastro-esophageal reflux disease without esophagitis; Z79.84 Long term (current) use of oral hypoglycemic drugs; Z88.8 Allergy status to other drugs, medicaments and biological substances; Z90.49 Acquired absence of other specified parts of digestive tract
CPT/HCPCS: 36415; 80053; 81001; 85025; 85610; 85730; Q9967

== ENCOUNTER → 2022-04-26 | Outpatient (CLI) | payer OTHER, MEDICARE ==
[~2022-04-26] MED LIST changes: +HYDR25SU38 RC
== END | disposition home or self-care (01) ==
LOC: SHCH 08:40
PROVIDERS: ATTEND Internal Medicine Cardiovascular Disease
DX: I35.0 Nonrheumatic aortic (valve) stenosis (principal); I11.9 Hypertensive heart disease without heart failure; I25.10 Atherosclerotic heart disease of native coronary artery without angina pectoris; E03.9 Hypothyroidism, unspecified; E11.9 Type 2 diabetes mellitus without complications; E78.5 Hyperlipidemia, unspecified; E66.9 Obesity, unspecified
CPT/HCPCS: 93306

== ENCOUNTER → 2023-01-24 | Outpatient (CLI) | payer OTHER, MEDICARE ==
[~2023-01-24] MED LIST changes: +FERR-72 PO; +FLUT1BLS11 IH; +NITR0.4T50 SL
== END | disposition home or self-care (01) ==
LOC: RAH 10:33
PROVIDERS: ATTEND Family Medicine
DX: Z12.31 Encounter for screening mammogram for malignant neoplasm of breast (principal)
CPT/HCPCS: 77067

== ENCOUNTER → 2023-03-14 | Outpatient (CLI) | payer OTHER, MEDICARE | END | disposition home or self-care (01) | LOC: RAH 14:22 | PROVIDERS: ATTEND Family Medicine | DX: N17.9 Acute kidney failure, unspecified (principal) | CPT/HCPCS: 76770 ==

== ENCOUNTER → 2023-06-02 | Outpatient (CLI) | payer OTHER, MEDICARE | END | disposition home or self-care (01) | LOC: OIH 12:10 | PROVIDERS: ATTEND Family Medicine | DX: M19.011 Primary osteoarthritis, right shoulder (principal); M25.711 Osteophyte, right shoulder; M21.821 Other specified acquired deformities of right upper arm; M25.811 Other specified joint disorders, right shoulder; M25.511 Pain in right shoulder | CPT/HCPCS: 73030 ==

== ENCOUNTER → 2024-01-26 | Outpatient (CLI) | payer OTHER, MEDICARE ==
[~2024-01-26] MED LIST changes: +MELO10CA3 PO
== END | disposition home or self-care (01) ==
LOC: RAH 07:44
PROVIDERS: ATTEND Family Medicine
DX: Z12.31 Encounter for screening mammogram for malignant neoplasm of breast (principal); R92.323 Mammographic fibroglandular density, bilateral breasts
CPT/HCPCS: 77067

== ENCOUNTER → 2025-02-08 | Outpatient (CLI) | payer OTHER, MEDICAID | END | disposition home or self-care (01) | LOC: RAH 08:04 | PROVIDERS: ATTEND Family Medicine | DX: Z12.31 Encounter for screening mammogram for malignant neoplasm of breast (principal) | CPT/HCPCS: 77067 ==